=== PATIENT | female | born 1945 | race Caucasian/White ===

== ENCOUNTER 2016-06-07 14:56 | Emergency (ER) | payer OTHER ==
[~2016-06-07] VITALS: Ht 160 cm; Wt 85.7 kg
--- NOTE | 2016-06-07 15:58 | ED MVC/FALL/TRAUMA COMPLAINT ---
History of Present Illness General Chief Complaint: Fall Stated Complaint: FALL LAC TO LFT HAND Source: patient, family, old records Exam Limitations: no limitations Vital Signs & Intake/Output Vital Signs & Intake/Output Vital Signs Date Time Temp Pulse Resp B/P Pulse O2 O2 Flow FiO2 Ox Delivery Rate 06/07 1733 97.0 70 16 148/86 97 Room Air 06/07 1528 99.3 80 20 170/84 97 Room Air Allergies Coded Allergies: chlorpheniramine (From CORICIDIN HBP COUGH AND COLD) (Intermediate, HIVES ) dextromethorphan (From CORICIDIN HBP COUGH AND COLD) (Intermediate, HIVES ) loperamide (From IMODIUM A-D) (Intermediate, HIVES 06/07/16) latex (Mild, RASH 06/07/16) Reconcile Medications Cephalexin (Keflex) 500 MG CAPSULE 1 CAP PO TID PPX Triage Note: TRIAGE: PT TO ER WITH C/C PAIN AND LACERATION TO UPPER LIP AND L HAND S/P TRIP/FALL. STATES WAS WALKING DOG ON THE LEASH WHEN HE PULLED HER AND SHE FELL. HAS DRESSING IN PLACE TO L HAND, WOUND NOT VISUALIZED AT TRIAGE. Triage Nurses Notes Reviewed? yes Onset: Abrupt Duration: hour(s): (1), better, constant Timing: single episode today Severity: mild, moderate Severity Numbers: 4 Injuries/Fall Location: upper extremity Method of Injury: fall Loss of Consciousness: no loss of consciousness No Modifying Factors: none Associated Symptoms: denies HPI: 71-year-old female history of high blood pressure high cholesterol presents status post sustaining laceration to her left hand and face when she had a mechanical fall while walking her dog. She states the dog pulled her causing her to fall on her face. The injury occurred just 1 hour prior to arrival. There was no loss of consciousness. She denies headache vision changes neck or back pain. She denies any pain at the site of the laceration of her hand, there is no hand wrist forearm elbow or shoulder pain her tetanus is up-to-date she states. She denies any right arm or bilateral leg pain no numbness or tingling no nausea no vomiting. There is no epistaxis or dental trauma. She denies any other complaints at this time there is no prodromal dizziness or lightheadedness prior to her fall No change in her mental status per . She states since being in the waiting room she is now noticed a bump to her left forehead. However denies pain. (KEVIN ABBASI) Past History Travel History Traveled to [place] past 21 day No Medical History Any Pertinent Medical History? 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 No (KEVIN ABBASI) Review of Systems Review of Systems Constitutional: Reports: see HPI. All Other Systems: Reviewed and Negative Comments Review of systems: See HPI, All other systems negative. Constitutional, no chills no fever, no malaise HEENT: No visual changes no sore throat no congestion, no ear pain Cardiovascular: No chest pain , no palpitation Skin, no jaundice no rashes, no change in skin Respiratory: No dyspnea no cough no sputum no hemoptysis GI: No nausea no vomiting, no diarrhea, no bloating/constipation : No dysuria No hematuria, no frequency, no discharge Muscle skeletal: No joint pain, no joint swelling, no back pain, no neck pain, Neurologic: No numbness no confusion, no headache Psych: No stress Heme/endocrine: No bruising no bleeding Immunology: No lymphadenopathy (KEVIN ABBASI) Physical Exam Physical Exam General Appearance: well developed/nourished, no apparent distress, alert, awake Comments: Well-developed well-nourished person in no acute distress HEENT: There is a superficial abrasion over the Philtrum, superfical abrasion noted to the superior upper inner lip, no laceration, Normal EENT exam; PERRL, EOMI, no nystagmus. There is a small scalp hematoma noted over the left forehead, nontender no surrounding ecchymosis the rest of the scalp and face are atraumatic nontender no raccoon eyes no thomas signs no hemotympanum moist mucous membranes. No epistaxis no dry blood noted to the nostrils. Neck: Supple, no midline or paracervical tenderness, no lymphadenopathy, normal range of motion without pain or tenderness Back: Nontender, . Full range of motion Cardiovascular: Regular rate and rhythms no murmurs rubs Respiratory: Chest nontender.There were no bony deformities, no asymmetry. No respiratory distress. Patient speaking in full complete sentences. Breath sounds clear to auscultation bilaterally: NO W/R/R Abdomen: Soft, nontender nondistended, no appreciable organomegaly. Normal bowel sounds. No rebound/guarding Shoulder: Atraumatic/Stable. FROM . Elbow: Atraumatic/stable. FROM. No laxity Upper arm/Forearm: Atraumatic. Nontender. No edema, 5 out of 5 administrative office manager strength noted to bilateral upper extremities Hand/Wrist: 3 cm linear laceration noted to the palmar aspect of the left medial hand, no visualized tendon injury no visualized foreign body, there is no scaphoid tenderness the hand is atraumatic nontender FROM Pulses: Normal/equal radial pulses bilaterally. Brisk cap refill lower Extremity: No edema, full range of motion of extremities, normal and equal pulses bilaterally, 5 out of 5 strength noted to bilateral lower extremities Neuro: Alert oriented x3, motor sensory normal, cranial nerves II through XII grossly intact. There were no obvious focal neurologic abnormalities. Skin: No appreciable rash on exposed skin, skin is warm and dry. Psych: Mood and affect is normal, memory and judgment is normal. Diagram Hands, Palmar: 1) Laceration as described above. Core Measures ACS in differential dx? No Severe Sepsis Present: No Septic Shock Present: No (KEVIN ABBASI) Progress Differential Diagnosis: C/T/L spine injury, ext injury, ICH, pelvis injury, spinal cord injury, EMBEDDED FB Plan of Care: Orders Procedure Date/time Status XRY-HAND, 3 View LEFT 06/07 1557 Active X-ray ordered patient medicated with naproxen 500 mg by mouth. It was recommended to the patient and her family that a CAT scan be performed given the scalp hematoma to the left frontal scalp, as I discussed with her given her age the possibility of intracranial hemorrhage exist. The patient is declining stating she does not have a headache she denies pain to her face has no nausea vomiting there is no change in her mental status The patient returned from x-ray the wound was thoroughly irrigated with normal saline Betadine peroxide. The laceration was anesthetized with lidocaine 1% , Sutures times 12 3-0 aDminister by me. I discussed the patient and her at length her x-ray findings there is no visualized or palpated foreign body on exam the wound was thoroughly irrigated with normal saline Betadine peroxide. The patient will be sent home with close follow-up with her primary care physician, and antibiotic prophylaxis. Patient has full range of motion of her fingers tolerated procedure well she will return in 7-10 days for suture removal , she will return anytime sooner with any concerns or signs of infection which were discussed with her: Redness warmth swelling discharge fever or chills. (OPAL MUHAMMAD,KEVIN) Diagnostic Imaging: Viewed by Me: Radiology Read. Discussed w/RAD: Radiology Read. Radiology Impression: PATIENT: MELODY LEPE PRESENT AGE: 71 PATIENT ACCOUNT NO: [id number] : 44 LOCATION: [facility] ORDERING PHYSICIAN: KEVIN MUHAMMAD SERVICE DATE: 06/07/16 EXAM TYPE: RAD - XRY- HAND, LEFT EXAMINATION: XR HAND, LEFT CLINICAL INFORMATION: Laceration status- post fall; question fracture. COMPARISON: None. TECHNIQUE: AP, lateral, and oblique views of the left hand. FINDINGS: Bony alignment and mineralization are normal. No definite fracture or dislocation is seen. There is dressing material overlapping the proximal left fifth finger and distal hyperthenar region. Within the soft tissues anteromedial to the distal shaft of the left fifth metacarpal bone, there is a 3 mm round density which likely represents a foreign body. This is less likely to represent a fracture fragment, as no definite donor site is seen. Accessory ossification centers are seen adjacent to the heads of several of the metacarpal bones as well as of the ulnar styloid. IMPRESSION: 1. No definite fracture or dislocation is seen. 2. There is a probable foreign body in the soft tissues anteromedial to the distal left fifth metacarpal shaft. This is less likely to represent a fracture fragment, as there is no obvious donor site. Please correlate with clinical findings. DICTATED BY: JOHNATHON GARCIA MD DATE/TIME DICTATED:06/07/161629 MORTGAGE ADVISOR:JENNIE DATE/TIME TRANSCRIBED:1629 CONFIDENTIAL, DO NOT COPY WITHOUT APPROPRIATE AUTHORIZATION. < Electronically signed in Other Vendor System> SIGNED BY: JOHNATHON GARCIA MD 06/07/16 3271 (KEVIN ABBASI) Departure Departure Time of Disposition: 1717 Disposition: HOME OR SELF CARE Condition: Stable Clinical Impression Primary Impression: Minor head injury without loss of consciousness Secondary Impressions: Fall, Foreign body in subcutaneous tissue, Hand laceration, Scalp hematoma Referrals: ALLEN BYNUM,TERRENCE (PCP/Family) Additional Instructions: Tylenol or ibuprofen every 8 hours as needed for pain ice packs as discussed. Keep area clean and covered as discussed, bacitracin daily. Return to ER in 7- 10 days for suture removal. The possibility of a retained foreign body not seen during examination today or deep tendon injury exists. Return to ER anytime sooner with any concerns or signs of infection: Redness, warmth, swelling discharge fever or chills. Departure Forms: Customer Survey General Discharge Information Prescriptions: Current Visit Scripts Cephalexin (Keflex) 1 CAP PO TID #15 CAP (KEVIN ABBASI) PA/CURING SUPERVISOR Co-Sign Statement Statement: ED Attending supervision documentation- [X] I saw and evaluated the patient. I have also reviewed all the pertinent lab results and diagnostic results. I agree with the findings and the plan of care as documented in the PA's/CURING SUPERVISOR's documentation. [X] I have reviewed the ED Record and agree with the PA's/CURING SUPERVISOR's documentation. [] Additions or exceptions (if any) to the PAs/CURING SUPERVISOR's note and plan are summarized below: [] (NORAH BYNUM,SHEREEN Lawrence) Procedures Laceration/Wound Repair Laceration/Wound Repair: Wound Location: upper extremity Wound's Depth, Shape: linear, superficial Wound Length (cm): 3 Wound Explored: clean, no foreign body removed, irrigated extensively Irrigated w/ Saline (ccs): 300 Betadine Prep? Yes Anesthesia: 1% lidocaine Volume Anesthetic (ccs): 6 Wound Repaired With: sutures Suture Size/Type: 3:0 Number of Sutures: 12 Layer Closure? No Sterile Dressing Applied: Yes Tetanus Status: up to date (KEVIN ABBASI)
--- NOTE | 2016-06-07 16:43 | RADIOLOGY REPORT ---
EXAMINATION: XR HAND, LEFT CLINICAL INFORMATION: Laceration status-post fall; question fracture. COMPARISON: None. TECHNIQUE: AP, lateral, and oblique views of the left hand. FINDINGS: Bony alignment and mineralization are normal. No definite fracture or dislocation is seen. There is dressing material overlapping the proximal left fifth finger and distal hyperthenar region. Within the soft tissues anteromedial to the distal shaft of the left fifth metacarpal bone, there is a 3 mm round density which likely represents a foreign body. This is less likely to represent a fracture fragment, as no definite donor site is seen. Accessory ossification centers are seen adjacent to the heads of several of the metacarpal bones as well as of the ulnar styloid. IMPRESSION: 1. No definite fracture or dislocation is seen. 2. There is a probable foreign body in the soft tissues anteromedial to the distal left fifth metacarpal shaft. This is less likely to represent a fracture fragment, as there is no obvious donor site. Please correlate with clinical findings.
[2016-06-07] MEDS ORDERED: KEFLEX500 M1 PO (17:18)
[2016-06-07 17:33] VITALS: BP 148/86
== END 2016-06-07 17:33 ==
LOC: ERH 14:56
DX: S61.412A Laceration without foreign body of left hand, initial encounter (principal); S00.03XA Contusion of scalp, initial encounter; M79.5 Residual foreign body in soft tissue; W19.XXXA Unspecified fall, initial encounter; Y93.K1 Activity, walking an animal
CPT/HCPCS: 73130-LT

== ENCOUNTER 2016-06-14 13:03 | Emergency (ER) | payer OTHER ==
[~2016-06-14] VITALS: Ht 160 cm; Wt 81.6 kg
[~2016-06-14 13:03] MED LIST: KEFLEX500 M1 PO
[2016-06-14 13:07] VITALS: BP 170/82
--- NOTE | 2016-06-14 13:17 | ED ANIMAL BITE/WOUND CHECK ---
History of Present Illness General Chief Complaint: Laceration Procedure Stated Complaint: SUTURE REMOVAL Source: patient Exam Limitations: no limitations Vital Signs & Intake/Output Vital Signs & Intake/Output Vital Signs Date Time Temp Pulse Resp B/P Pulse O2 O2 Flow FiO2 Ox Delivery Rate 06/14 1307 97.5 84 16 170/82 96 Room Air Allergies Coded Allergies: chlorpheniramine (From CORICIDIN HBP COUGH AND COLD) (Intermediate, HIVES ) dextromethorphan (From CORICIDIN HBP COUGH AND COLD) (Intermediate, HIVES ) loperamide (From IMODIUM A-D) (Intermediate, HIVES 06/07/16) latex (Mild, RASH 06/07/16) Reconcile Medications Cephalexin (Keflex) 500 MG CAPSULE 1 CAP PO TID PPX Triage Note: PT HERE FOR SUTURE REMOVAL THAT WERE PLACED LAST WEDNESDAY. Triage Nurses Notes Reviewed? yes Onset: Abrupt Duration: better Timing: recent history Injury Environment: park Is Injury an Animal Bite? No Severity: mild HPI: Patient is a 71-year-old female who presents emergency room with a wound recheck and suture removal request in which one week ago patient was walking her dog and had a mechanical fall in which she fell on her face and left hand in which a laceration occurred in which patient received #14 sutures placed. Patient has been applying bacitracin daily and covered since every day. Denies any signs of infection. (KEVIN URENA) Past History Travel History Traveled to [place] past 21 day No Medical History Any Pertinent Medical History? 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 No (KEVIN URENA) Review of Systems Review of Systems Constitutional: Reports: no symptoms. EENTM: Reports: no symptoms. Respiratory: Reports: no symptoms. Cardiovascular: Reports: no symptoms. GI: Reports: no symptoms. Genitourinary: Reports: no symptoms. Musculoskeletal: Reports: no symptoms. Skin: Reports: see HPI. Neurological/Psychological: Reports: no symptoms. Hematologic/Endocrine: Reports: no symptoms. Immunologic/Allergic: Reports: no symptoms. All Other Systems: Reviewed and Negative (KEVIN URENA) Physical Exam Physical Exam General Appearance: no apparent distress, alert Skin: intact, normal color, warm/dry Comments: Well-developed well-nourished no apparent distress. HEENT: Atraumatic, extraocular motion intact Neck: Supple, no lymphadenopathy Back: Nontender Respiratory: No respiratory distress Extremities: No edema, full range of motion Neuro: Alert and oriented x3 Psych: Mood affect normal, normal memory normal judgment. Diagram Hands, Palmar: 1) 3 cm well healing laceration with #12 intact sutures No surrounding discharge no erythema no swelling no warmth (KEVIN URENA) Progress Differential Diagnosis: abscess, cellulitis Plan of Care: Due to physical exam findings I discussed with patient to leave area open to improve healing which patient has been applying bacitracin and bandage once a day. Due to the location of the wound that advised patient to return to emergency room in 3 days for suture repair in which she will comply and had no questions. At this time there are no signs or symptoms of infection. (KEVIN URENA) Departure Departure Disposition: HOME OR SELF CARE Condition: Stable Clinical Impression Primary Impression: Visit for wound check Referrals: ALLEN BYNUM,TERRENCE (PCP/Family) Additional Instructions: As discussed LEAVE area open and dry and clean as possible to improve healing. If you note signs of infection such as redness, pain, swelling, discharge return to emergency room immediately. Return to emergency room in 3 days for suture removal. Departure Forms: Customer Survey General Discharge Information (KEVIN URENA) PA/VISUAL C DEVELOPER Co-Sign Statement Statement: ED Attending supervision documentation- x I saw and evaluated the patient. I have also reviewed all the pertinent lab results and diagnostic results. I agree with the findings and the plan of care as documented in the PA's/VISUAL C DEVELOPER's documentation. [] I have reviewed the ED Record and agree with the PA's/VISUAL C DEVELOPER's documentation. [] Additions or exceptions (if any) to the PAs/VISUAL C DEVELOPER's note and plan are summarized below: [] (ANTHONY BYNUM,ELAINE)
== END 2016-06-14 13:28 ==
LOC: ERH 13:03
DX: Z48.01 Encounter for change or removal of surgical wound dressing (principal)
CPT/HCPCS: 99281

== ENCOUNTER 2016-06-17 08:55 | Emergency (ER) | payer OTHER ==
[~2016-06-17] VITALS: Ht 160 cm; Wt 83.0 kg
[2016-06-17 09:03] VITALS: BP 136/72
--- NOTE | 2016-06-17 09:08 | ED ANIMAL BITE/WOUND CHECK ---
History of Present Illness General Chief Complaint: Suture Removal/Wound Recheck Stated Complaint: SUTURE REMOVAL Source: patient, old records Exam Limitations: no limitations Vital Signs & Intake/Output Vital Signs & Intake/Output Vital Signs Date Time Temp Pulse Resp B/P Pulse O2 O2 Flow FiO2 Ox Delivery Rate 06/17 0903 97.0 79 14 136/72 96 Room Air 06/17 0901 100 Room Air Allergies Coded Allergies: chlorpheniramine (From CORICIDIN HBP COUGH AND COLD) (Intermediate, HIVES ) dextromethorphan (From CORICIDIN HBP COUGH AND COLD) (Intermediate, HIVES ) loperamide (From IMODIUM A-D) (Intermediate, HIVES 06/07/16) latex (Mild, RASH 06/07/16) Reconcile Medications Cephalexin (Keflex) 500 MG CAPSULE 1 CAP PO TID PPX Triage Note: 71 Y/O FEMALE REQUESTING SUTURE REMOVAL (12) IN PLACE TO L HAND; PLACED 10 DAYS AGO. SITE APPEARS WELL HEALED, NO S/S INFECTION NOTED Triage Nurses Notes Reviewed? yes Onset: Abrupt Duration: day(s): (10), better Timing: recent history Injury Environment: home Severity: mild Severity Numbers: 1 No Modifying Factors: none Associated Symptoms: DENIES HPI: 71-year-old female presents emergency room for wound check suture removal after being seen here 10 days ago requiring 12 sutures to her left hand. She denies any complications no redness warmth discharge fever or chills. She denies any difficulty with range of motion of her hands. She denies any rashes to her skin there is no numbness or tingling or no modifying factors or associated symptoms otherwise. (KEVIN ABBASI) Past History Travel History Traveled to [place] past 21 day No Medical History Any Pertinent Medical History? 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 No (KEVIN ABBASI) Review of Systems Review of Systems Constitutional: Reports: see HPI. All Other Systems: Reviewed and Negative Comments Review of systems: See HPI, All other systems negative. Constitutional, no chills no fever, no malaise HEENT: No visual changes no sore throat no congestion Cardiovascular: No chest pain , no palpitation , Skin, no jaundice no rashes, no change in skin Respiratory: No dyspnea no cough no sputum GI: No nausea no vomiting, no diarrhea, : No dysuria Muscle skeletal: No joint pain, no joint swelling, no back pain, no neck pain, Neurologic: No numbness no headache Psych: No stress Heme/endocrine: No bruising no bleeding Immunology: No lymphadenopathy (KEVIN ABBASI) Physical Exam Physical Exam General Appearance: well developed/nourished, alert, awake Comments: Well-developed well-nourished patient in no apparent distress. HEENT: Atraumatic, extraocular motion intact Neck: Supple, FROM Back: FROM Cardiovascular: Regular rate and rhythms no murmurs Respiratory: No respiratory distress. Patient speaking in full complete sentences. Breath sounds clear to auscultation bilaterally: NO W/R/R Shoulder: Atraumatic/Stable. FROM . Elbow: Atraumatic/stable. FROM. No laxity Upper arm/Forearm: Atraumatic. Nontender. No edema, 5 out of 5 hose seamer strength noted to bilateral upper extremities Hand/Wrist: 12 sutures intact to the left palmar aspect hand, there is no overlying erythema or induration fluctuance nontender Atraumatic/stable. Skin intact. FROM Pulses: Normal/equal radial pulses bilaterally. Brisk cap refill lower Extremities: full range of motion Neuro: Alert and oriented x3 Skin: Warm & dry;No appreciable rash on exposed skin Psych: Mood affect normal, normal memory normal judgment. (KEVIN ABBASI) Progress Differential Diagnosis: abscess, cellulitis, joint infection, tenosysnovitis Plan of Care: 12 SUTURES REMOVED BY ME NO WOUND DEHISCENCE. PT TOLERATED PROCEDURE WELL, advised close follow-up with primary care, return to ER anytime sooner with any concerns she feels comfortable with plan (KEVIN ABBASI) Departure Departure Time of Disposition: 909 Disposition: HOME OR SELF CARE Condition: Stable Clinical Impression Primary Impression: Visit for suture removal Referrals: ALLEN BYNUM,TERRENCE (PCP/Family) Departure Forms: Customer Survey General Discharge Information (KEVIN ABBASI) PA/ELECTRICAL SYSTEMS DESIGNER Co-Sign Statement Statement: ED Attending supervision documentation- x I saw and evaluated the patient. I have also reviewed all the pertinent lab results and diagnostic results. I agree with the findings and the plan of care as documented in the PA's/ELECTRICAL SYSTEMS DESIGNER's documentation. [] I have reviewed the ED Record and agree with the PA's/ELECTRICAL SYSTEMS DESIGNER's documentation. [] Additions or exceptions (if any) to the PAs/ELECTRICAL SYSTEMS DESIGNER's note and plan are summarized below: [] (ANTHONY BYNUM,ELAINE)
== END 2016-06-17 09:25 ==
LOC: ERH 08:55
DX: Z48.02 Encounter for removal of sutures (principal)
CPT/HCPCS: 99281